=== PATIENT | male | born 1985 | race Caucasian/White ===

== ENCOUNTER → 2018-05-02 | Outpatient (CLI) | payer OTHER | LOC: M RAD 08:37 | DX: R07.2 Precordial pain (principal) | CPT/HCPCS: 78315 ==

== ENCOUNTER 2019-03-25 06:44 | Emergency (ER) | payer OTHER ==
[~2019-03-25] VITALS: Ht 175.3 cm; Wt 76.8 kg
[2019-03-25 06:44] VITALS: BP 131/82
[2019-03-25] MEDS ORDERED: ADDE1TAB14 PO (06:53)
[2019-03-25] MEDS ORDERED: AFRI0.058 (07:25)
[2019-03-25] MEDS ORDERED: TESS100C PO (07:25)
== END 2019-03-25 07:56 | disposition home or self-care (01) ==
LOC: M ED 06:44
DX: J06.9 Acute upper respiratory infection, unspecified (principal)

== ENCOUNTER 2022-02-26 06:47 | Emergency (ER) | payer OTHER ==
[~2022-02-26] VITALS: Ht 172.7 cm; Wt 85.1 kg
[~2022-02-26 06:47] MED LIST: ADDE1TAB14 PO; OXYM15SP2; TESS100C PO
[2022-02-26] MEDS ORDERED: MUCI120T PO (08:31)
[2022-02-26 08:36] VITALS: BP 117/79
== END 2022-02-26 08:54 | disposition home or self-care (01) ==
LOC: M ED 06:47
DX: J04.0 Acute laryngitis (principal); T50.B95A Adverse effect of other viral vaccines, initial encounter; R50.9 Fever, unspecified; F90.9 Attention-deficit hyperactivity disorder, unspecified type; Z87.891 Personal history of nicotine dependence